=== PATIENT | male | born 1955 | race Caucasian/White ===

== ENCOUNTER → 2019-04-01 | Outpatient (CLI) | payer MEDICARE ==
[2019-04-01 19:33] LABS: BASOPHILS ABSOLUTE AUTO 0.04 K/mm3 (0.00-0.23); BASOPHILS PERCENT AUTO 1 % (0-2); EOSINOPHILS ABSOLUTE AUTO 0.16 K/mm3 (0.00-0.68); EOSINOPHILS PERCENT AUTO 2 % (0-6); Hematocrit 42.3 % (33.0-53.0); IMMATURE GRAN ABSOLUTE AUTO 0.04 K/mm3 (0.00-0.10); IMMATURE GRAN PERCENT AUTO 1 % (0-1); LYMPHOCYTES ABSOLUTE AUTO 1.86 K/mm3 (0.84-5.20); LYMPHOCYTES PERCENT AUTO 23 % (21-46); MONOCYTES ABSOLUTE AUTO 0.56 K/mm3 (0.16-1.47); MONOCYTES PERCENT AUTO 7 % (4-13); Mean Corpuscular HGB 31.5 pg (26.0-34.0); Mean Corpuscular HGB Conc 33.1 g/dL (31.5-36.5); Mean Corpuscular Volume 95 fL (80-100); Mean Platelet Volume 9.7 fL (9.1-12.4); NEUTROPHILS ABSOLUTE AUTO 5.41 K/mm3 (1.96-9.15); NEUTROPHILS PERCENT AUTO 67 % (41-73); Platelet Count 181 K/mm3 (150-400); RDW Coefficient Variation 12.7 % (11.7-14.2); RDW Standard Deviation 43.5 fL (35.1-46.3); Red Blood Cell Count 4.44 M/mm3 (3.80-5.90); White Blood Cell Count 8.07 K/mm3 (4.00-11.30)
[2019-04-01 20:01] LABS: Alanine Aminotransfer (ALT/SGP 24 U/L (12-78); Albumin, Blood 3.2 g/dL (3.4-5.0); Albumin/Globulin Ratio 0.9 (0.8-1.8); Alk Phos 79 U/L (50-136); Anion Gap 2 mmol/L (6-16); Aspartate Aminotrans (AST/SGOT 23 U/L (12-37); Bilirubin, Direct 0.1 mg/dL (0.0-0.3); Bilirubin, Indirect 0.5 mg/dL (0.1-0.7); Bilirubin, Total 0.6 mg/dL (0.1-1.0); Blood Urea Nitrogen 10 mg/dL (8-24); Bun/Creatinine Ratio 9.1 (12.0-20.0); CO2, Blood 30 mmol/L (21-32); Calcium, Blood 8.8 mg/dL (8.5-10.1); Chloride, Blood 107 mmol/L (98-108); Globulin, Blood 3.6 g/dL (2.2-4.0); Glucose, Blood 96 mg/dL (70-99); Sodium, Blood 139 mmol/L (136-145); Total Protein, Blood 6.8 g/dL (6.4-8.2); Uric Acid, Blood 9.8 mg/dL (2.6-7.2)
[2019-04-05 12:16] LABS: Glomerular Filtration Rate >60 (60-)
== END | disposition home or self-care (01) ==
LOC: LAB SHORT 08:10 → LAB 08:10
PROVIDERS: Nurse Practitioner Family
DX: M10.00 Idiopathic gout, unspecified site (principal)
CPT/HCPCS: 80053; 82248; 84550; 85025

== ENCOUNTER 2024-07-28 06:15 | Observation (INO) | payer OTHER ==
[~2024-07-28] VITALS: Ht 165.1 cm; Wt 150.6 kg
[2024-07-28 06:51] LABS: BASOPHILS ABSOLUTE AUTO 0.04 K/mm3 (0.00-0.23); BASOPHILS PERCENT AUTO 0 % (0-2); EOSINOPHILS ABSOLUTE AUTO 0.08 K/mm3 (0.00-0.68); EOSINOPHILS PERCENT AUTO 1 % (0-6); Hematocrit 37.2 % (33.0-53.0); Hemoglobin 12.9 g/dL (11.5-17.5); IMMATURE GRAN ABSOLUTE AUTO 0.06 K/mm3 (0.00-0.10); IMMATURE GRAN PERCENT AUTO 0 % (0-1); LYMPHOCYTES ABSOLUTE AUTO 0.77 K/mm3 (0.84-5.20); LYMPHOCYTES PERCENT AUTO 5 % (21-46); MONOCYTES ABSOLUTE AUTO 1.04 K/mm3 (0.16-1.47); MONOCYTES PERCENT AUTO 7 % (4-13); Mean Corpuscular HGB 32.8 pg (26.0-34.0); Mean Corpuscular HGB Conc 34.7 g/dL (31.5-36.5); Mean Corpuscular Volume 95 fL (80-100); Mean Platelet Volume 8.7 fL (9.1-12.4); NEUTROPHILS ABSOLUTE AUTO 13.75 K/mm3 (1.96-9.15); NEUTROPHILS PERCENT AUTO 87 % (41-73); Platelet Count 176 K/mm3 (150-400); RDW Coefficient Variation 13.2 % (11.7-14.2); RDW Standard Deviation 45.2 fL (35.1-46.3); Red Blood Cell Count 3.93 M/mm3 (3.80-5.90); White Blood Cell Count 15.74 K/mm3 (4.00-11.30)
[2024-07-28 07:14] LABS: PCO2 Arterial 42.2 mmHg (35-45); PO2 Arterial 62.1 mmHg (80-100); pH Blood Arterial 7.45 (7.35-7.45)
[2024-07-28 07:41] LABS: Alanine Aminotransfer (ALT/SGP 32 U/L (12-78); Albumin/Globulin Ratio 0.7 (0.8-1.8); Alk Phos 95 U/L (50-136); Anion Gap 10 mmol/L (3-11); Aspartate Aminotrans (AST/SGOT 39 U/L (12-37); Bilirubin, Total 0.6 mg/dL (0.1-1.0); Blood Urea Nitrogen 11 mg/dL (8-24); Bun/Creatinine Ratio 10.3 (12.0-20.0); CO2, Blood 28 mmol/L (21-32); Calcium, Blood 8.8 mg/dL (8.5-10.1); Chloride, Blood 105 mmol/L (98-108); Creatinine, Blood 1.07 mg/dL (0.40-1.20); Globulin, Blood 4.5 g/dL (2.2-4.0); Glucose, Blood 89 mg/dL (70-99); Potassium, Blood 4.1 mmol/L (3.5-5.5); Sodium, Blood 139 mmol/L (136-145); Total Protein, Blood 7.5 g/dL (6.4-8.2)
[2024-07-28 08:19] LABS: Influenza A, PCR NEGATIVE (NEGATIVE); Influenza B, PCR NEGATIVE (NEGATIVE); Resp Syncytial Virus, PCR NEGATIVE (NEGATIVE); SARS-Cov-2 (COVID-19) PCR, MMC NEGATIVE (NEGATIVE)
[2024-07-28] MEDS ORDERED: FLU VACC TS2024-25(6MOS UP)/PF 45 MCG/0.5 ML SYRINGE IM SCH (09:50)
[2024-07-28 12:37] VITALS: BP 149/72
[2024-07-28 12:38] VITALS: BP 172/90
[2024-07-28] MEDS ORDERED: Guaifenesin/Dextromethorphan Syrup 5 ML UDC PO PRN (15:20)
[2024-07-28] MEDS ORDERED: Benzonatate 100 MG Cap PO PRN (15:20)
[2024-07-28 16:01] VITALS: BP 142/74
[2024-07-28] MEDS ORDERED: ALLO100 PO (16:28)
[2024-07-28] MEDS ORDERED: METO50ER PO (16:29)
[2024-07-28] MEDS ORDERED: XARELTO20 MG PO (16:29)
[2024-07-28] MEDS ORDERED: AMLO5 PO (16:29)
[2024-07-28] MEDS ORDERED: Acetaminophen 325 MG TABLET PO PRN (18:10)
--- NOTE | 2024-07-28 18:22 | NUR ---
SHIFT SUMMARY PATIENT A/OX4, ABLE TO MAKE NEEDS KNOWN. PLEASANT AND COOPERATIVE WITH CARE. PATIENT REPORTS HE HAS BEEN SLEEPING IN A SEATED POSITION FOR THE LAST 3 MONTHS DUE TO SHORTNESS OF BREATH. MICONAZOLE ORDERED FOR RASH TO GROIN AND ABDOMINAL FOLD. TELEMETRY IN PLACE, NO EVENTS NOTED. PRN TESSALON PEARLES AND COUGH SYRUP ADMINISTERED FOR PATIENT'S COUGH, INEFFECTIVE. PATIENT ALSO COMPLAINING OF "SINUS PRESSURE" AND HEADACHE RELATED TO COUGHING, MD NOTIFED AND NEW ORDER FOR TYLENOL ADMINISTERED. PATIENT WITH MULTIPLE VISITORS THIS AFTERNOON. PATIENT ALSO CONCERNING FOR INABILITY TO CARE FOR HIMSELF AT HOME EVIDENCED BY SKIN BREAKDOWN TO GROIN AND ABDOMINAL FOLD AND PATIENT ARRIVING WITH FOUL SMELLING PANTS WITH DRIED BOWEL MOVEMENT. PATIENT REPORTS HAS DIFFICULTY "CLEANING" HIMSELF AFTER TOILETING. NO OTHER CONCERNS AT THIS TIME.
[2024-07-28 20:34] VITALS: BP 135/66
[2024-07-28] MEDS ORDERED: Miconazole Nitrate 2% 85 GM PWD TOP SCH (21:00)
[2024-07-29 00:14] LABS: Adenovirus Not Detected (NOT DETECT); Coronavirus 229E Not Detected (NOT DETECT); Coronavirus HKU1 Not Detected (NOT DETECT)
[2024-07-29 00:15] LABS: Bordetella pertussis Not Detected (NOT DETECT); Chlamydophila pneumoniae Not Detected (NOT DETECT); Coronavirus NL63 Not Detected (NOT DETECT); Coronavirus OC43 Detected (NOT DETECT); Human Metapneumovirus Not Detected (NOT DETECT); Human Rhinovirus/Enterovirus Not Detected (NOT DETECT); Influenza A/2009-H1 Not Detected (NOT DETECT); Influenza A/H1 Not Detected (NOT DETECT); Influenza A/H3 Not Detected (NOT DETECT); Influenza B Not Detected (NOT DETECT); Mycoplasma pneumoniae Not Detected (NOT DETECT); Parainfluenza Virus 1 Not Detected (NOT DETECT); Parainfluenza Virus 2 Not Detected (NOT DETECT); Parainfluenza Virus 3 Not Detected (NOT DETECT); Parainfluenza Virus 4 Not Detected (NOT DETECT); Respiratory Syncytial Virus Not Detected (NOT DETECT); SARS-Cov-2 (COVID-19), BioFire Not Detected (NOT DETECT)
[2024-07-29 02:51] VITALS: BP 171/80
--- NOTE | 2024-07-29 04:21 | NUR ---
Pt A&O x4, VS elevated this am, not on routine meds, notified and ordered to start at 0900. Pt with adequate I&O. Wt decreased by 1kg per standing wt. tele NSR with BBB. Denies dizziness and no pain noted. Awaiting Echo this am. No d/c plan as of yet.
[2024-07-29 05:06] LABS: BASOPHILS ABSOLUTE AUTO 0.02 K/mm3 (0.00-0.23); BASOPHILS PERCENT AUTO 0 % (0-2); EOSINOPHILS ABSOLUTE AUTO 0.14 K/mm3 (0.00-0.68); EOSINOPHILS PERCENT AUTO 2 % (0-6); Hematocrit 37.9 % (33.0-53.0); Hemoglobin 12.9 g/dL (11.5-17.5); IMMATURE GRAN ABSOLUTE AUTO 0.05 K/mm3 (0.00-0.10); IMMATURE GRAN PERCENT AUTO 1 % (0-1); LYMPHOCYTES ABSOLUTE AUTO 0.68 K/mm3 (0.84-5.20); LYMPHOCYTES PERCENT AUTO 8 % (21-46); MONOCYTES ABSOLUTE AUTO 0.63 K/mm3 (0.16-1.47); MONOCYTES PERCENT AUTO 8 % (4-13); Mean Corpuscular Volume 97 fL (80-100); Mean Platelet Volume 8.6 fL (9.1-12.4); NEUTROPHILS ABSOLUTE AUTO 6.82 K/mm3 (1.96-9.15); NEUTROPHILS PERCENT AUTO 82 % (41-73); Platelet Count 157 K/mm3 (150-400); RDW Coefficient Variation 13.4 % (11.7-14.2); RDW Standard Deviation 47.5 fL (35.1-46.3); Red Blood Cell Count 3.91 M/mm3 (3.80-5.90); White Blood Cell Count 8.34 K/mm3 (4.00-11.30)
[2024-07-29 05:43] LABS: Magnesium, Blood 1.9 mg/dL (1.6-2.4)
[2024-07-29 05:47] LABS: Alanine Aminotransfer (ALT/SGP 26 U/L (12-78); Albumin/Globulin Ratio 0.6 (0.8-1.8); Alk Phos 94 U/L (50-136); Anion Gap 12 mmol/L (3-11); Aspartate Aminotrans (AST/SGOT 36 U/L (12-37); Bilirubin, Total 1.2 mg/dL (0.1-1.0); Blood Urea Nitrogen 11 mg/dL (8-24); Bun/Creatinine Ratio 10.1 (12.0-20.0); CO2, Blood 28 mmol/L (21-32); Calcium, Blood 8.6 mg/dL (8.5-10.1); Chloride, Blood 103 mmol/L (98-108); Creatinine, Blood 1.09 mg/dL (0.40-1.20); Globulin, Blood 4.7 g/dL (2.2-4.0); Glucose, Blood 99 mg/dL (70-99); Potassium, Blood 4.2 mmol/L (3.5-5.5); Sodium, Blood 139 mmol/L (136-145); Total Protein, Blood 7.7 g/dL (6.4-8.2)
[2024-07-29 07:45] VITALS: BP 155/75
[2024-07-29] MEDS ORDERED: Albuterol HFA200 ACT/6.7 GM INH INH PRN (08:45)
[2024-07-29] MEDS ORDERED: Enoxaparin 40 MG/0.4 ML SYR SC SCH (09:00)
[2024-07-29] MEDS ORDERED: AmLODIPine Besylate 5 MG Tab PO SCH (09:00)
[2024-07-29] MEDS ORDERED: Rivaroxaban 10 MG Tab PO SCH (09:00)
[2024-07-29] MEDS ORDERED: Allopurinol 100 MG Tab PO SCH (09:00)
[2024-07-29] MEDS ORDERED: Metoprolol Succinate 25 MG TABCR PO SCH (09:00)
[2024-07-29] MEDS ORDERED: HydroCHLOROthiazide 25 mg Tab PO SCH (11:00)
[2024-07-29] MEDS ORDERED: Acetaminophen325 M1 PO (12:51)
[2024-07-29] MEDS ORDERED: ALBU90OI INH (12:52)
[2024-07-29] MEDS ORDERED: Tessalon200 MG PO (12:53)
[2024-07-29] MEDS ORDERED: Q-Tussin100 MG/5 M PO (12:54)
[2024-07-29] MEDS ORDERED: MICONAZOLE NITR85 GM TOP (12:55)
[2024-07-29] MEDS ORDERED: HYDCHL25 PO (12:56)
[2024-07-29 17:34] VITALS: BP 152/81
--- NOTE | 2024-07-29 18:59 | NUR ---
DISCHARGE NOTE PATIENT A/OX4, ABLE TO MAKE NEEDS KNOWN. PLEASANT AND COOPERATIVE WITH CARE. ECHOCARDIOGRAM PERFROMED THIS AFTERNOONA ND RESULTED LATE THIS EVENING. DISCHARGE MEDICATIONS DISCUSSED WITH PATIENT ADN FAXED TO [facility] PER PATIENT REQUEST. PATIENT WITH PLANS TO CONFIGURATOR IN THE MORNING. TELEMETRY AND IV REMOVED PRIOR TO DISCHARGE. SPO2 REMAINS WNL ON ROOM AIR. PATIENT'S NEIGHBOR PRESENT AT TIME FO DISCHARGE. PATIENT STUBBED HIS TOE WHEN AMBULATING TO [facility] AT TIME OF DISCHARGE AND STARTED TO BLEED. ASSESSMENT COMPLETED ON HIS RIGHT FOOT FOUN HIS TOE NAIL PARTIALLY RIPPED. BANDAGE WAS APPLIED AND BLEEDING HAD SUBSIDED. PATIENT SENT HOME WITH URINAL TO ASSIST HIM AT HOME WITH TOILETING. NO OTHER CONCERNS AT THIS TIME. PATIENT ASSISTED TO WHEELCHAIR BY [facility] STAFF AND ASSISTED TO NEIGHBORS VEHICLE.
== END 2024-07-29 18:45 | disposition home or self-care (01) ==
LOC: ER 06:15 → EDSEX 11:56 → MEDS 11:56 → ENPENDDIS 07-29 12:18 → MEDS 07-29 18:45
PROVIDERS: Emergency Medicine; ADMIT Internal Medicine
DX: R55 Syncope and collapse (principal); B97.29 Other coronavirus as the cause of diseases classified elsewhere; I10 Essential (primary) hypertension; M10.9 Gout, unspecified; B37.2 Candidiasis of skin and nail; E66.01 Morbid (severe) obesity due to excess calories; Z68.43 Body mass index [BMI] 50.0-59.9, adult; Z66 Do not resuscitate; Z79.01 Long term (current) use of anticoagulants; Z86.718 Personal history of other venous thrombosis and embolism
CPT/HCPCS: 0202U; 0241U; 36415; 36600; 71045; 80053; 82375; 82803; 83605; 83735; 83880; 84145; 84443; 84484; 85025; 87040; 93005; 93010; 93306; 94640; 94664; 94760; 99285-25; A9270; G0378